=== PATIENT | male | born 1965 | race Caucasian/White ===

== ENCOUNTER 2016-12-25 14:15 | Emergency (ER) | payer MEDICAID ==
--- NOTE | 2016-12-25 15:33 | UC ---
Throat Pain/Nasal Ariel HPI - HPI Summary HPI Summary: complaint of nasal congestion and cough that started 3 days ago cough is productive at times has had a fever and chills-last fever 102 -2 days ago mild sore throat feels extremely fatigued denies headache, N/V/D, muscle aches not taking any medication for symptoms at this time - History of Current Complaint Chief Complaint: UCRespiratory Stated Complaint: RESP ISSUE Time Seen by Provider: 12/25/16 15:23 Hx Obtained From: Patient - Allergies/Home Medications Allergies/Adverse Reactions: Allergies Allergy/AdvReac Type Severity Reaction Status Date / Time Trolamine [From Cerumenex] Allergy Severe Rash Verified 12/25/16 14:51 Home Medications: Home Medications NK [No Home Medications Reported] 12/25/16 [History Confirmed 12/25/16] PMH/Surg Hx/FS Hx/Imm Hx Previously Healthy: Yes Endocrine History Of: Denies: Diabetes, Thyroid Disease Cardiovascular History Of: Denies: Cardiac Disorders, Hypertension Respiratory History Of: Denies: COPD, Asthma GI/ History Of: Denies: Ulcer - Surgical History Surgical History: None - Family History Known Family History: Negative: Cardiac Disease, Hypertension, Diabetes - Social History Occupation: Employed Full-time Lives: With Family Alcohol Use: Rare Substance Use Type: None Smoking Status (MU): Never Smoked Tobacco Review of Systems Constitutional: Fever Skin: Negative Eyes: Negative ENT: Nasal Discharge Respiratory: Cough Cardiovascular: Negative Gastrointestinal: Negative Genitourinary: Negative Motor: Negative Neurovascular: Negative Musculoskeletal: Negative Neurological: Negative Psychological: Negative All Other Systems Reviewed And Are Negative: Yes Physical Exam Triage Information Reviewed: Yes Appearance: No Pain Distress, Well-Nourished Vital Signs: Initial Vital Signs Temp 99.1 F 12/25/16 14:52 Pulse 83 12/25/16 14:52 Resp 16 12/25/16 14:52 BP 134/81 12/25/16 14:52 Pulse Ox 97 12/25/16 14:52 Vital Signs Reviewed: Yes Eyes: Positive: Conjunctiva Clear ENT: Positive: Pharyngeal erythema, Nasal congestion, Nasal drainage, TMs normal , Other: - no sinus tenderness Neck: Positive: No Lymphadenopathy Respiratory: Positive: Lungs clear, Normal breath sounds, No respiratory distress Cardiovascular: Positive: RRR, No Murmur, Pulses Normal Abdomen Description: Positive: Nontender, Soft Bowel Sounds: Positive: Present Musculoskeletal: Positive: No Edema Neurological: Positive: Alert Psychological Exam: Normal Skin Exam: Normal Throat Pain/Nasal Course/Dx - Differential Dx/Diagnosis Differential Diagnosis/HQI/PQRI: Influenza, Pharyngitis, URI Provider Diagnoses: URI Discharge - Discharge Plan Condition: Stable Disposition: HOME Patient Education Materials: Upper Respiratory Infection (ED) Referrals: Zoe Petit MD [Primary Care Provider] - Additional Instructions: Your blood pressure is pre-hypertensive reading. Please contact your primary care provider within 1 day -4 weeks for further evaluation. VIRAL UPPER RESPIRATORY INFECTION (COMMON COLD) What is Viral Upper Respiratory Infection? Viral upper respiratory infection is the medical term for the common cold. Respiratory infections can be caused by either a virus or bacteria. The common cold is caused by a virus. The virus travels through the air and can be passed easily from one person to another. This is one reason that it is so important to cover your mouth when you cough or sneeze. When you cover your mouth you will get the virus on your hands. If you touch something with that hand the virus is spread to the object you touch. Because of this you should be sure to wash your hands often when you have a cold. Symptoms usually begin 1 to 3 days after the virus takes hold in your body. Other people can catch your cold even before you start to notice symptoms, which is one reason why colds are hard to prevent. Symptoms May Include: Scratchiness or tickling in the throat Sore throat Stuffy nose Generalized aches and pains Coughing or sneezing Feeling tired Treatment Recommendations: Drink plenty of clear, nonalcoholic fluids, such as water, sports drinks, or juice. For example, an average adult should drink 8 ounces every hour, a child 6 to 10 years should drink 4 ounces every hour, and a child under 6 should drink 1 to 2 ounces every hour. You should rest as much as possible. You can use a cool-mist humidifier or steam vaporizer to increase air moisture. This will make it easier to breathe. Remember that a steam vaporizer may contain hot water that can cause severe chapin. If you smoke, stopsmoke irritates bronchial passages. If you are coughing up mucus, and milk seems to make the sputum thicker, do not eat or drink foods that contain milk. You want to try to cough up mucous whenever possible so that you dont get pneumonia. Do not use cough suppressant medicine without your healthcare providers OK. You should take all medications prescribed until completely gone, or as instructed. Non-prescription medicine such as acetaminophen (Tylenol) or ibuprofen (Motrin , Advil) may help your aches, pains, and fever. Do not take someone else's medicine, or penicillin tablets that you may have saved. You could cause a more serious problem than you already have. Don't bundle up to sweat out a fever. It only makes your fever worse. If you feel cold, cover up; if you feel warm, dress lightly.
== END 2016-12-25 16:27 | disposition home or self-care (01) ==
LOC: UCEAST 14:15
DX: J06.9 Acute upper respiratory infection, unspecified (principal); Z88.8 Allergy status to other drugs, medicaments and biological substances
CPT/HCPCS: 87502; 99201; G0463

== ENCOUNTER 2017-08-06 14:53 | Emergency (ER) | payer OTHER ==
[2017-08-06 16:15] VITALS: BP 144/87
--- NOTE | 2017-08-06 17:04 | UC ---
Respiratory Complaint HPI - HPI Summary HPI Summary: c/o facial and nasal congestion for the past 5 days, which gave him a fever the first few nights. He took ibuprofen and felt better but since yesterday has felt extremely fatigued. Clearing his throat occasionally, denies cough or sore throat - History of Current Complaint Chief Complaint: UCRespiratory Stated Complaint: SINUS PAIN Time Seen by Provider: 08/06/17 16:47 - Allergies/Home Medications Allergies/Adverse Reactions: Allergies Allergy/AdvReac Type Severity Reaction Status Date / Time Trolamine [From Cerumenex] Allergy Severe Rash Verified 08/06/17 15:37 Home Medications: Home Medications Ibuprofen [Advil] 200 mg PO Q6H PRN 08/06/17 [History Confirmed 08/06/17] PMH/Surg Hx/FS Hx/Imm Hx Previously Healthy: Yes - Surgical History Surgical History: Yes Surgery Procedure, Year, and Place: tonsillectomy - Family History Known Family History: Negative: Cardiac Disease, Hypertension, Diabetes - Social History Alcohol Use: Rare Substance Use Type: None Smoking Status (MU): Never Smoked Tobacco - Immunization History Most Recent Influenza Vaccination: none Review of Systems Constitutional: Negative ENT: Sinus Pain/Tenderness All Other Systems Reviewed And Are Negative: Yes Physical Exam Triage Information Reviewed: Yes Appearance: Well-Appearing Vital Signs: Initial Vital Signs Temp 97.6 F 08/06/17 15:34 Pulse 73 08/06/17 15:34 Resp 16 08/06/17 15:34 BP 144/87 08/06/17 15:34 Pulse Ox 98 08/06/17 15:34 Vital Signs Reviewed: Yes Eyes: Positive: Conjunctiva Clear ENT Exam: Other ENT: Positive: Hearing grossly normal, Pharynx normal, Nasal congestion, Sinus tenderness - left maxillary tenderness, Cerumen impaction right UC Diagnostic Evaluation - Laboratory O2 Sat by Pulse Oximetry: 98 Respiratory Course/Dx - Course Course Of Treatment: Medications prescribed, instructed to take them. - Differential Dx/Diagnosis Provider Diagnoses: acute maxillary sinusitis. Cerumen impaction Discharge - Discharge Plan Condition: Stable Disposition: HOME Patient Education Materials: Sinusitis (ED), Cerumen Impaction (ED) Forms: *Work Release Referrals: Avery Garcia MD [Primary Care Provider] -
== END 2017-08-06 17:18 | disposition home or self-care (01) ==
LOC: UCEAST 14:53
DX: J01.00 Acute maxillary sinusitis, unspecified (principal); H61.21 Impacted cerumen, right ear
CPT/HCPCS: 99212; G0463

== ENCOUNTER 2018-06-07 12:39 | Emergency (ER) | payer OTHER ==
--- NOTE | 2018-06-07 13:03 | UC ---
Throat Pain/Nasal Ariel HPI - HPI Summary HPI Summary: 52 yo male presents with sinus congestion since last night. He tells me that he has a history of sinus infections, but has not had any in over a year. He is very worried that this may be an infection. Has does take a daily "religion weed magic pill" that he says has cured his sinus infections the past year. Denies fever, chills, sore throat, cough. - History of Current Complaint Stated Complaint: sinus complaint Time Seen by Provider: 06/07/18 13:03 Hx Obtained From: Patient Onset/Duration: Sudden Onset - Allergies/Home Medications Allergies/Adverse Reactions: Allergies Allergy/AdvReac Type Severity Reaction Status Date / Time trolamine salicylate Allergy Severe Rash Verified 06/07/18 13:10 Sulfa (Sulfonamide Allergy Unknown unk Verified 06/07/18 13:10 Antibiotics) Home Medications: Home Medications Carbamide Peroxide 6.5% OTIC* [DEBROX 6.5% Otic*] 1 drop .SEE ORDER BID PRN 09/12 [History Confirmed 06/07/18] PMH/Surg Hx/FS Hx/Imm Hx - Additional Past Medical History Additional PMH: None - Surgical History Surgical History: Yes Surgery Procedure, Year, and Place: tonsillectomy - Family History Known Family History: Negative: Cardiac Disease, Hypertension, Diabetes - Social History Occupation: Employed Full-time Lives: With Family Alcohol Use: Rare Substance Use Type: None Smoking Status (MU): Never Smoked Tobacco - Immunization History Most Recent Influenza Vaccination: none Review of Systems Constitutional: Negative Skin: Negative Eyes: Negative ENT: Sinus Congestion Respiratory: Negative Cardiovascular: Negative Gastrointestinal: Negative Neurovascular: Negative Neurological: Negative Psychological: Negative All Other Systems Reviewed And Are Negative: Yes Physical Exam - Summary Physical Exam Summary: GENERAL: NAD. WDWN. No pain distress. SKIN: No rashes, sores, lesions, or open wounds. HEENT: Head: AT/NC Eyes: EOM intact. Conjunctiva clear without inflammation or discharge. Ears: Hearing grossly normal. TMs intact, no bulging, erythema, or edema. Nose: Nasal mucosa pink and moist. NTTP maxillary and frontal sinus. Throat: Posterior oropharynx without exudates, erythema, or tonsillar enlargement. Uvula midline. NECK: Supple. Nontender. No lymphadenopathy. CHEST: CTAB. No r/r/w. No accessory muscle use. Breathing comfortably and in no distress. CV: RRR. Without m/r/g. Pulses intact. Cap refill <2seconds NEURO: Alert. PSYCH: Age appropriate behavior. Triage Information Reviewed: Yes Vital Signs: Vital Signs: Temp Pulse Resp BP Pulse Ox 97.8 F 70 16 128/84 99 06/07/18 12:57 06/07/18 12:57 06/07/18 12:57 06/07/18 12:57 06/07/18 12:57 Vital Signs Reviewed: Yes Throat Pain/Nasal Course/Dx - Course Course Of Treatment: Suspect viral sinusitis. Advised to try OTC mucinex and nasonex and f/u if symptoms persist or worsen. - Differential Dx/Diagnosis Provider Diagnoses: Viral sinusitis Discharge - Sign-Out/Discharge Documenting (check all that apply): Patient Departure All imaging exams completed and their final reports reviewed: No Studies - Discharge Plan Condition: Stable Disposition: HOME Patient Education Materials: Rhinosinusitis (DC) Forms: *Work Release Referrals: Avery Garcia MD [Primary Care Provider] - Additional Instructions: If you develop a fever, shortness of breath, chest pain, new or worsening symptoms - please call your PCP or go to the ED. 1) May try [id number] Mucinex and Nasonex for your sinuses - Billing Disposition and Condition Condition: STABLE Disposition: Home
[2018-06-07 13:10] VITALS: BP 128/84
== END 2018-06-07 13:32 | disposition home or self-care (01) ==
LOC: UCEAST 12:39
DX: J32.8 Other chronic sinusitis (principal); B97.89 Other viral agents as the cause of diseases classified elsewhere; Z88.2 Allergy status to sulfonamides; Z88.8 Allergy status to other drugs, medicaments and biological substances
CPT/HCPCS: 99211; G0463

== ENCOUNTER 2019-02-04 15:00 | Emergency (ER) | payer OTHER ==
[2019-02-04] MEDS ORDERED: Cyclobenzaprine TAB* 10 MG PO ONE (15:32)
[2019-02-04] MEDS ORDERED: Naproxen TAB* 250 MG PO ONE (15:32)
--- NOTE | 2019-02-04 15:38 | ED ---
Back Pain - HPI Summary HPI Summary: Patient is a 53-year-old male who presents emergency department for low back pain 5 days. Patient states he is doing a squat with weights 5 days ago when he felt a pull in his low back. Patient states that pain has been improved with activity and ibuprofen but at night pain is worse when he is resting. Patient feels as though muscles are tightening to his low back. He denies radicular pain into legs, numbness, tingling or weakness. Denies bowel or bladder incontinence or retention. Patient states he's had similar symptoms in the past. He otherwise denies fever, chills, chest pain, shortness of breath, abdominal pain, urinary symptoms, bowel or bladder incontinence or retention, vomiting or diarrhea. Symptoms are mild in severity. - History of Current Complaint Chief Complaint: EDBackInjJeff Stated Complaint: "BACK PAIN PER EMS" Time Seen by Provider: 02/04/19 15:04 Hx Obtained From: Patient Pain Intensity: 10 - Allergies/Home Medications Allergies/Adverse Reactions: Allergies Allergy/AdvReac Type Severity Reaction Status Date / Time trolamine salicylate Allergy Severe Rash Verified 06/07/18 13:10 Sulfa (Sulfonamide Allergy Unknown unk Verified 06/07/18 13:10 Antibiotics) Home Medications: Home Medications Levothyroxine TAB* [Synthroid TAB*] 25 mcg PO DAILY 02/04/19 [History Confirmed 02/04/19] PMH/Surg Hx/FS Hx/Imm Hx Previously Healthy: Yes Endocrine/Hematology History: Denies: Hx Diabetes, Hx Thyroid Disease Cardiovascular History: Reports: Hx Hypertension - mild Respiratory History: Denies: Hx Asthma, Hx Chronic Obstructive Pulmonary Disease (COPD) GI History: Denies: Hx Ulcer - Surgical History Surgery Procedure, Year, and Place: tonsillectomy Infectious Disease History: No Infectious Disease History: Reports: Hx of Known/Suspected MRSA Denies: Hx Clostridium Difficile, Hx Hepatitis, Hx Human Immunodeficiency Virus (HIV), Hx Shingles, Hx Tuberculosis, Hx Known/Suspected VRE, Hx Known/ Suspected VRSA, History Other Infectious Disease, Traveled Outside the [place] in Last 30 Days - Family History Known Family History: Negative: Cardiac Disease, Hypertension, Diabetes - Social History Occupation: Employed Full-time Lives: With Family Alcohol Use: Rare Substance Use Type: Reports: None Smoking Status (MU): Never Smoked Tobacco Review of Systems Constitutional: Negative Negative: Fever, Chills Cardiovascular: Negative Negative: Chest Pain Respiratory: Negative Negative: Shortness Of Breath Gastrointestinal: Negative Negative: Abdominal Pain, Vomiting, Diarrhea Genitourinary: Negative Negative: burning, dysuria, frequency, flank pain, hematuria Positive: Other - low lumbar pain Skin: Negative Negative: Weakness, Paresthesia, Numbness All Other Systems Reviewed And Are Negative: Yes Physical Exam Triage Information Reviewed: Yes Vital Signs On Initial Exam: Initial Vitals Temp Pulse Resp BP Pulse Ox 97.7 F 74 16 140/88 98 02/04/19 15:01 02/04/19 15:01 02/04/19 15:01 02/04/19 15:01 02/04/19 15:01 Vital Signs Reviewed: Yes Appearance: Positive: Well-Appearing - Pt. lying in bed in NAD. Talkative. Skin: Positive: Warm, Dry Head/Face: Positive: Normal Head/Face Inspection Eyes: Positive: Normal, EOMI Neck: Positive: Supple Musculoskeletal: Positive: Normal, Strength/ROM Intact, Other - 5/5 strength in bilateral LEs with flexion and dorsiflexion. Negative straight leg test bilaterally. No midline lumbar tenderness. No CVA tenderness. Neurological: Positive: Normal, CN Intact II-III Psychiatric: Positive: Affect/Mood Appropriate Diagnostics - Vital Signs Vital Signs Temp Pulse Resp BP Pulse Ox 02/04/19 15:01 97.7 F 74 16 140/88 98 - Laboratory Lab Statement: Any lab studies that have been ordered have been reviewed, and results considered in the medical decision making process. Back Pain Course/Dx - Course Course Of Treatment: Patient presenting with low back pain 5 days. He has no neurological deficits. He has no reproducible pain on exam. No evidence of cauda equina syndrome. Will treat with naproxen and Flexeril. Advised warm compresses and close follow-up with PCP. To avoid heavy lifting. We'll return to the ER if symptoms change or worsen. Patient understands and agrees with plan. - Diagnoses Differential Diagnosis/HQI/PQRI: Positive: Arthritis, Strain, Sprain Provider Diagnoses: Lumbar strain Discharge - Sign-Out/Discharge Documenting (check all that apply): Patient Departure Patient Received Moderate/Deep Sedation with Procedure: No - Discharge Plan Condition: Good Disposition: HOME Prescriptions: Cyclobenzaprine TAB* [Flexeril 10 MG TAB*] 10 mg PO TID PRN #12 tab PRN Reason: Pain Naproxen [Naproxen 500 mg tab] 500 mg PO BID #20 tablet Patient Education Materials: Low Back Strain (ED) Referrals: Huy Chow NP [Primary Care Provider] - Additional Instructions: Schedule a follow up appointment with your PCP Medication as directed Apply warm compresses Avoid heavy lifting Return to ER if symptoms change or worsen - Billing Disposition and Condition Condition: GOOD Disposition: Home
[2019-02-04 16:46] VITALS: BP 101/78
== END 2019-02-04 16:45 | disposition home or self-care (01) ==
LOC: ED 15:00
DX: M54.5 Low back pain (principal); I10 Essential (primary) hypertension; Z88.2 Allergy status to sulfonamides
CPT/HCPCS: 99282; A9270-GY

== ENCOUNTER 2019-04-09 19:58 | Emergency (ER) | payer OTHER ==
[2019-04-09 20:12] VITALS: BP 133/89
--- NOTE | 2019-04-09 20:20 | UC ---
Epistaxis Nasal HPI - HPI Summary HPI Summary: 53 y/o male presents to the urgent care c/o he had a nosebleed yesterday morning and then again this morning. He reports he was at [employer] playing the [employer] very excited when the nosebleed suddenly started yesterday. today he was working in the computer when it happened. He applied pressure for a few minutes and it stopped. Pt taken multiple Vitamins and supplements at home to be healthy and does heavy lifting and a lot exercise daily. He recently did had blood work done recently ordered by his PCP. He was looking on internet for multiple causes of Nose bleeding and he is concerned about his calcium since he has Hx of hypothyrodism. Nose bleeding resolved completely. Pt denies Hx of polyps, seasonal allergies, FMHX of coagulation disorders, dizziness, POST, SOB, difficulty breathing, chest pain,abdominal pain, bruises, abdominal pain, N/V/ d. - History of Current Complaint Chief Complaint: UCGeneralIllness Stated Complaint: NOSE BLEED Time Seen by Provider: 04/09/19 20:18 Hx Obtained From: Patient Onset/Duration: Sudden Onset, Lasting Days - Pt had a nose bleed yesterday and another one this morning, Resolved Timing: Seconds - 2x Severity Initially: Mild Severity Currently: Mild Pain Intensity: 0 Pain Scale Used: 0-10 Numeric Aggravating Factor(s): Nothing Alleviating Factor(s): Pressure Associated Signs And Symptoms: Positive: Negative. Negative: Bruising, Hematuria, Hematochezia, Sinus Pain, Nasal Discharge, Recent Abnormal Coagulation Studies - Allergies/Home Medications Allergies/Adverse Reactions: Allergies Allergy/AdvReac Type Severity Reaction Status Date / Time trolamine salicylate Allergy Severe Rash Verified 04/09/19 20:12 Sulfa (Sulfonamide Allergy Unknown unk Verified 04/09/19 20:12 Antibiotics) Home Medications: Home Medications Betaine [Cystadane] 3 gm PO DAILY 04/09/19 [History Confirmed 04/09/19] Brain Bright 0.5 tab PO DAILY 04/09/19 [History Confirmed 04/09/19] Cholecalciferol (Vitamin D3) [Vitamin D3] 5,000 unit PO DAILY 04/09/19 [History Confirmed 04/09/19] Citrulline [l-Citrulline] 6 gm PO DAILY 04/09/19 [History Confirmed 04/09/19] Cyclobenzaprine TAB* [Flexeril 10 MG TAB*] 6 mg PO TID PRN 04/09/19 [History Confirmed 04/09/19] Glutamine [Glutasolve] 6 gm PO DAILY 04/09/19 [History Confirmed 04/09/19] Kyolic Garlic Extract 2 tab PO DAILY 04/09/19 [History Confirmed 04/09/19] Conway-3 Fatty Acids/Fish Oil [Fish Oil 1,000 mg Softgel] 4 each PO DAILY [History Confirmed 04/09/19] Vitamin E CAP* 400 unit PO DAILY 04/09/19 [History Confirmed 04/09/19] PMH/Surg Hx/FS Hx/Imm Hx Previously Healthy: Yes Endocrine History: Hypothyroidism Cardiovascular History: Hypertension - diet control - Surgical History Surgical History: Yes Surgery Procedure, Year, and Place: tonsillectomy - Family History Known Family History: Positive: Hypertension Negative: Cardiac Disease, Diabetes - Social History Occupation: Employed Full-time Lives: With Family Alcohol Use: Rare Substance Use Type: None Smoking Status (MU): Never Smoked Tobacco - Immunization History Most Recent Influenza Vaccination: none Review of Systems All Other Systems Reviewed And Are Negative: Yes Constitutional: Positive: Negative Skin: Positive: Negative Eyes: Positive: Negative ENT: Positive: Epistaxis - one episode yesterday and another this morning whch resolved w/ pressure Respiratory: Positive: Negative Cardiovascular: Positive: Negative Gastrointestinal: Positive: Negative Genitourinary: Positive: Negative Motor: Positive: Negative Neurovascular: Positive: Negative Musculoskeletal: Positive: Negative Neurological: Positive: Negative Psychological: Positive: Negative Is Patient Immunocompromised?: No Physical Exam - Summary Physical Exam Summary: Vital Signs Reviewed: Yes General: well developed, well nourished male sitting in the examining table w/o any apparent distress Eyes: Positive: Conjunctiva Clear - PERRLA, EOMI, fundi grossly normal ENT: Positive: Normal ENT inspection, Hearing grossly normal, Pharynx mild erythema, no exudate, Negative: Tonsillar swelling, Tonsillar exudate Nose/Face: No surface trauma, Soft tissue swelling, ecchymosis, deformity, B/L nostrils w/ no blood. edematous and erythematous nasal mucosa. a discrete abrasion observed on the lateral side of Rt nostril. No septal hematoma. No Midface instability, movement of superior alveolar ridge. No Tenderness of zygoma, maxilla, mandible. EARS: TMs normal. Neck: Positive: Supple, Nontender, No Lymphadenopathy Respiratory: no orthopnea or dyspnea. Able to speak in full sentences, no retractions or accessory muscle use, no tripod position, stridor, or head bobbing. CTA bilaterally, no wheezing, no rhonchi, no rales, no crackles. Cardiovascular: Positive: RRR, No Murmur, Pulses Normal, Brisk Capillary Refill Abdomen Description: Positive: Nontender, No Organomegaly, Soft. Negative: CVA Tenderness (R), CVA Tenderness (L) Bowel Sounds: Positive: Present Musculoskeletal Exam: Normal Musculoskeletal: Positive: Strength Intact, ROM Intact, No Edema Neurological Exam: Normal Psychological Exam: Normal Skin Exam: Normal Triage Information Reviewed: Yes Vital Signs: Initial Vital Signs Temp 98.9 F 04/09/19 20:06 Pulse 65 04/09/19 20:06 Resp 16 04/09/19 20:06 BP 133/89 04/09/19 20:06 Pulse Ox 97 04/09/19 20:06 Epistaxis Nasal Course/Dx - Course Course Of Treatment: 53 y/o male presents to the urgent care c/o he had a nosebleed yesterday morning and then again this morning. He reports he was at [employer] playing the [employer] very excited when the nosebleed suddenly started yesterday. today he was working in the computer when it happened. He applied pressure for a few minutes and it stopped. Pt taken multiple Vitamins and supplements at home to be healthy and does heavy lifting and a lot exercise daily. He recently did had blood work done recently ordered by his PCP. He was looking on internet for multiple causes of Nose bleeding and he is concerned about his calcium since he has Hx of hypothyrodism. Nose bleeding resolved completely. Pt denies Hx of polyps, seasonal allergies, FMHX of coagulation disorders, dizziness, POST, SOB, difficulty breathing, chest pain,abdominal pain, bruises, abdominal pain, N/V/ d. Pt is hemodynamically stable, vital : WNL. No active epistaxis at this moment. No surface trauma, Soft tissue swelling, ecchymosis, deformity, B/L nostrils w/ no blood. edematous and erythematous nasal mucosa. a discrete abrasion observed on the lateral side of Rt nostril. No septal hematoma on examination.Pt takes multiple supplements which can be the cause of his Nose bleeding or it can be the small nasal abrasion. Recent labs done on 01/04/2019 reviewed and Pt w/ Elevated Vitamin B-12, but CBC is normal. Pt requests a medication to stop bleeding in case if it happens again. Pt Rx Oxymetazoline nasal spray and advised to use it only once to stop nose bleeding. Pt educated on different causes of epistaxis. Advised to apply vaseline, use a humidifier at night time. Strongly advised to f/u w/ DR White ENT referral for further evaluation if Nose Bleeding becomes recurrent. Also advised to go immediately to the ER if Nosebleed becomes profuse and it is not stopped w/ pressure. Pt explained D/C instructions. Pt understood and agreed w/ plan of care. Pt left the clinic hemodynamically stable, A&OX3 - Differential Dx/Diagnosis Differential Diagnosis/HQI/PQRI: Allergic Rhinitis, Environmental, Epistaxis, Polyps Provider Diagnosis: Epistaxis, recurrent Discharge - Sign-Out/Discharge Documenting (check all that apply): Patient Departure - D/c home All imaging exams completed and their final reports reviewed: No Studies - Discharge Plan Condition: Stable Disposition: HOME Prescriptions: Oxymetazoline 0.05% NASAL SPR* [Afrin 0.05% NASAL SPRAY*] 1 spray NASAL Q12H #1 btl Patient Education Materials: Nosebleed (ED) Referrals: Huy Chow NP [Primary Care Provider] - 2 Days Rick White MD [Medical Doctor] - If Needed Additional Instructions: 1-Please to apply vaseline, use a humidifier at night time. 2- If Nosebleed returns apply the nasal spray as directed only once to stop bleeding 3-If Nosebleed returns profusely please go to the ER immediately for further management 4-If you continue w/ recurrent mild nosebleeds please f/u w/ DR White ENT referral for further evaluation 5- You are taken Multiple supplements that can thin your blood. 6-Please Stop taken your Vitamin B12 and f/u w/ you PCP for further management - Billing Disposition and Condition Condition: STABLE Disposition: Home - Attestation Statements Provider Attestation: Per institutional requirements, I have reviewed the chart, however, I was not consulted specifically or made aware of this patient by the midlevel provider. I did not personally evaluate, interact with , or disposition this patient.
== END 2019-04-09 21:25 | disposition home or self-care (01) ==
LOC: UCEAST 19:58
DX: R04.0 Epistaxis (principal); I10 Essential (primary) hypertension; E03.9 Hypothyroidism, unspecified
CPT/HCPCS: 99212; G0463

== ENCOUNTER 2019-07-30 17:23 | Emergency (ER) | payer OTHER ==
[2019-07-30 17:37] VITALS: BP 112/74
[2019-07-30 18:57] LABS: Influenza A Molecular NEGATIVE (Negative); Influenza B Molecular NEGATIVE (Negative)
--- NOTE | 2019-07-30 19:00 | UC ---
Throat Pain/Nasal Ariel HPI - HPI Summary HPI Summary: Patient is a 53yo male presenting with complaints of nasal congestion, nasal discharge, and fatigue since today at noon. Patient states he began to feel "dragged out" yesterday after work. He states he believes he "may have the flu, and if that is negative it must be a bacterial infection." Notes intermittent body aches. Patient denies fever and chills. Denies sore throat. Denies sinus tenderness and headaches. Denies ear pain. Denies cough, SOB, and wheezing. - History of Current Complaint Chief Complaint: UCGeneralIllness Stated Complaint: SINUS COMPLAINT Hx Obtained From: Patient Pain Intensity: 4 - Allergies/Home Medications Allergies/Adverse Reactions: Allergies Allergy/AdvReac Type Severity Reaction Status Date / Time trolamine salicylate Allergy Severe Rash Verified 04/09/19 20:12 Sulfa (Sulfonamide Allergy Unknown unk Verified 04/09/19 20:12 Antibiotics) Home Medications: Home Medications Ashwaganda 1 tab PO DAILY 07/30/19 [History Confirmed 07/30/19] Creatine 1 tab PO DAILY 07/30/19 [History Confirmed 07/30/19] Growth Hormone Supplement 5 gm PO DAILY 07/30/19 [History Confirmed 07/30/19] Hydroxymethylbutera Supplement 1 tab PO DAILY 07/30/19 [History] Taurine [David Taurine] 1 tab PO DAILY 07/30/19 [History Confirmed 07/30/19] Zinc Gluconate [Zinc] 1 tab PO DAILY 07/30/19 [History Confirmed 07/30/19] Zinc Methionine Sulfate [Zinc Monomethionine] 1 tab PO DAILY 07/30/19 [History Confirmed 07/30/19] PMH/Surg Hx/FS Hx/Imm Hx Endocrine History: Hypothyroidism - Surgical History Surgical History: Yes Surgery Procedure, Year, and Place: tonsillectomy - Family History Known Family History: Positive: Hypertension Negative: Cardiac Disease, Diabetes - Social History Alcohol Use: Rare Substance Use Type: None Smoking Status (MU): Never Smoked Tobacco - Immunization History Most Recent Influenza Vaccination: none Review of Systems All Other Systems Reviewed And Are Negative: Yes Constitutional: Positive: Fatigue. Negative: Fever, Chills ENT: Positive: Nasal Discharge, Sinus Congestion. Negative: Sore Throat, Ear Ache, Sinus Pain/Tenderness Respiratory: Positive: Negative Cardiovascular: Positive: Negative Gastrointestinal: Positive: Negative Musculoskeletal: Positive: Myalgia Neurological: Positive: Negative Physical Exam Triage Information Reviewed: Yes Appearance: Well-Appearing, No Pain Distress, Well-Nourished Vital Signs: Initial Vital Signs Temp 99.5 F 07/30/19 17:32 Pulse 87 07/30/19 17:32 Resp 18 07/30/19 17:32 BP 112/74 07/30/19 17:32 Pulse Ox 98 07/30/19 17:32 Lab Results 07/30/19 Range/Units 18:46 Influenza A (Rapid) Negative (Negative) Influenza B (Rapid) Negative (Negative) Vital Signs Reviewed: Yes Eyes: Positive: Conjunctiva Clear ENT: Positive: Hearing grossly normal, Pharynx normal, TMs normal, Uvula midline. Negative: Nasal congestion, Nasal drainage, Tonsillar swelling, Tonsillar exudate, Sinus tenderness Neck exam: Normal Neck: Positive: Supple, Nontender, No Lymphadenopathy Respiratory Exam: Normal Respiratory: Positive: Lungs clear, Normal breath sounds, No respiratory distress Cardiovascular Exam: Normal Cardiovascular: Positive: RRR Neurological: Positive: Alert. Negative: Fatigued Psychological: Positive: Decreased Age Appropriate Behavior, Other: - Agitated Throat Pain/Nasal Course/Dx - Course Course Of Treatment: Discussed negative rapid flu with patient and likely other viral etiology of congestion and fatigue. Educated on viral illnesses and why they do not respond to antibiotics. I instructed him to continue with symptomatic treatment and follow up with PCP if symptoms persist. Patient voiced understanding and agreed with plan. - Differential Dx/Diagnosis Provider Diagnosis: Nasal congestion, Fatigue Discharge ED - Sign-Out/Discharge Documenting (check all that apply): Patient Departure All imaging exams completed and their final reports reviewed: No Studies - Discharge Plan Condition: Stable Disposition: HOME Patient Education Materials: Cold Symptoms (ED) Forms: *Work Release Referrals: Huy Chow [employer] [Primary Care Provider] - If Needed Additional Instructions: As discussed, your symptoms are most likely caused by a virus. Your rapid flu test was negative. You may take mucinex as prescribed to help reduce your mucus production. You may use nasal saline spray as directed for symptomatic relief. You may take ibuprofen as directed for relief of your body aches. Get plenty of rest and increase your fluid intake. Follow up with your primary care doctor if your symptoms worsen or do not resolve within 7 days. - Billing Disposition and Condition Condition: STABLE Disposition: Home - Attestation Statements Provider Attestation: This patient was not seen by me. I reviewed the chart. I was available for consult.[email or web address]
== END 2019-07-30 19:05 | disposition home or self-care (01) ==
LOC: UCEAST 17:23
DX: R09.81 Nasal congestion (principal); R53.83 Other fatigue; M79.10 Myalgia, unspecified site; Z88.8 Allergy status to other drugs, medicaments and biological substances; Z88.2 Allergy status to sulfonamides
CPT/HCPCS: 99211; G0463